=== PATIENT | male | born 1975 | race American Indian/Alaskan Native ===

== ENCOUNTER 2022-05-01 08:15 | Observation (INO) | payer BC ==
[2022-04-26 14:59] LABS: Hematocrit 50.6 % (35.5-45.6); Hemoglobin 17.3 gm/dl (11.8-15.2); Mean Corpuscular HGB Conc 34 % (32-34); Mean Corpuscular Volume 88 fl (84-94); Platelet Count 243 K/mm3 (140-440); Red Blood Count 5.77 M/mm3 (3.65-5.03); Red Cell Distribution Width 16.2 % (13.2-15.2)
[2022-04-26 15:15] LABS: BUN/Creatinine Ratio 14; Blood Urea Nitrogen 15 mg/dL (9-20); Calcium 8.8 mg/dL (8.4-10.2); Hemolysis Index 8
[2022-05-01] MEDS ORDERED: LACTATED RINGERS 1,000 ML ONE (08:29)
[2022-05-01] MEDS: LACTATED RINGERS 1,000 ML IV SCH (08:45)
[2022-05-01] MEDS ORDERED: HYDROmorphone 0.5 MG/0.5 ML INJ IV PRN ×2 (08:51→09:00)
[2022-05-01] MEDS ORDERED: fentaNYL 100 MCG/2 ML INJ IV NR (08:51)
--- NOTE | 2022-05-01 08:52 | Anesthesia Day of Surgery ---
Anesthesia Day of Surgery - Day of Surgery Patient Examined: Yes Patient H&P Reviewed: Yes Patient is NPO: Yes
--- NOTE | 2022-05-01 08:53 | Anesthesia Consultation ---
Anesthesia Consult and Med Hx Date of service: 05/01/22 - Airway Anesthetic Teeth Evaluation: Good ROM Head & Neck: Adequate Mental/Hyoid Distance: Adequate Mallampati Class: Class II Intubation Access Assessment: Probably Good - Pre-Operative Health Status ASA Pre-Surgery Classification: ASA3 Proposed Anesthetic Plan: General Nerve Block: IS - Pulmonary Hx Smoking: No Hx Respiratory Symptoms: No (+2FS) Hx Sleep Apnea: Yes - Cardiovascular System Hx Hypertension: Yes - Central Nervous System Hx Psychiatric Problems: No - Gastrointestinal Hx Gastroesophageal Reflux Disease: No - Hematic Hx Anemia: No (17.3/50.6) Hx Sickle Cell Disease: No - Other Systems Hx Alcohol Use: Yes (Occas) Hx Cancer: No Hx Obesity: Yes
[2022-05-01] MEDS ORDERED: dexAMETHasone 4 MG/ML VIAL ONE (08:55)
[2022-05-01] MEDS ORDERED: BUPIVACAINE-EPINEPHRINE/PF 0.5%-1:200,000 (30 ML) VIAL INFILTRATI ONE ×2 (08:55→10:04)
[2022-05-01] MEDS ORDERED: ONDANSETRON 4 MG/2 ML INJ IV PRN ×2 (09:00→10:00)
[2022-05-01] MEDS: MIDAZOLAM 2 MG/2 ML INJ IV NR ×2 (09:13→09:57)
[2022-05-01] MEDS ORDERED: LIDOCAINE (1%) 10 MG/1 ML VIAL 20 ML MDV ONE (09:28)
[2022-05-01] MEDS ORDERED: ONDANSETRON 4 MG/2 ML INJ ONE (09:43)
[2022-05-01] MEDS ORDERED: SUCCINYLCHOLINE CHLORIDE 200 MG/10 ML INJ MDV ONE (09:43)
[2022-05-01] MEDS ORDERED: dexAMETHasone 20 MG/5 ML VIAL ONE (09:43)
[2022-05-01] MEDS ORDERED: LIDOCAINE MPF (2%) 20 MG/1 ML VIAL 5 ML ONE (09:43)
[2022-05-01] MEDS ORDERED: ROCURONIUM 50 MG/5 ML INJ IV ONE (09:43)
[2022-05-01] MEDS ORDERED: propofoL 200 MG/20 ML VIAL IV ONE (09:43)
[2022-05-01] MEDS ORDERED: ceFAZolin/Water 2 GM/20 ML 2 GM/20 ML SYRINGE IV ONE (09:53)
[2022-05-01] MEDS ORDERED: ACETAMINOPHEN 325 MG TAB PO PRN ×2 (10:00)
[2022-05-01] MEDS ORDERED: AMLODIPINE BESYLATE PO SCH (10:00)
[2022-05-01] MEDS ORDERED: KETOROLAC 30 MG/1 ML INJ IV PRN (10:00)
[2022-05-01] MEDS ORDERED: [UNRECOGNIZED DRUG - OTHER] PO SCH (10:00)
[2022-05-01] MEDS ORDERED: oxyCODONE /ACETAMINOPHEN 5-325MG TAB PO PRN ×3 (10:00)
[2022-05-01] MEDS ORDERED: BENAZEPRIL PO SCH (10:00)
[2022-05-01] MEDS ORDERED: POLYMYXIN B SULFATE 500,000 UNIT VIAL IV ONE (10:04)
[2022-05-01] MEDS ORDERED: SODIUM CHLORIDE 0.9% 250ML 0 ML ONE (10:04)
[2022-05-01] MEDS ORDERED: NEOMY 40 MG/POLYMYXIN B 200,000 UNITS/ML (GU) AMPULE IR ONE ×2 (10:05→11:35)
[2022-05-01] MEDS ORDERED: MORPHINE 4 MG/1 ML INJ IV PRN ×2 (11:00)
[2022-05-01] MEDS ORDERED: SODIUM CHLORIDE 0.9% IRRIG SOLN 3000 ML IR ONE (11:30)
[2022-05-01] MEDS ORDERED: SODIUM CHLORIDE 0.9% IRR 1,500 ML BOTTLE IR ONE (12:00)
[2022-05-01] MEDS ORDERED: ceFAZolin/STERILE WATER 2 GM/20 ML SYRINGE IV NR (13:00)
[2022-05-01] MEDS ORDERED: SUGAMMADEX SODIUM 200 MG/2 ML VIAL IV ONE (13:03)
[2022-05-01] MEDS ORDERED: KETOROLAC TROMETHAMINE 0.5% OS PRN (15:29)
[2022-05-01] MEDS: KETOROLAC TROMETHAMINE 0.5% OS SCH ×2 (15:51→20:50)
--- NOTE | 2022-05-01 15:59 | Post Anesthesia Evaluation ---
- Post Anesthesia Evaluation Patient Participated: Yes Airway Patent: Yes Stable Respiratory Function: Yes Nausea/Vomiting: No Temp > 96.8F: Yes Pain Manageable: Yes Adequeate Hydration: Yes Anesthesia Complications: Yes (left corneal abrasion-toradol gtts given) Block Receding Appropriately: Yes Patient on Ventilator: No Other Comments: Spoke w pt's to f/u w PCP re: ECG
--- NOTE | 2022-05-01 16:02 | XRay Report ---
Right shoulder one view INDICATION: Postop IMPRESSION: Postoperative changes with right humeral head component. Alignment appears normal. Signer Name: Ricki Valverde MD Signed: 05/01/2022 3:58 PM Workstation Name: [id number]
--- NOTE | 2022-05-01 17:59 | Operative Report ---
DATE OF SURGERY: 05/01/2022 PREOPERATIVE DIAGNOSIS: Right shoulder arthritis. POSTOPERATIVE DIAGNOSIS: Right shoulder arthritis. PROCEDURE PERFORMED: Right total shoulder arthroplasty. SURGEON: Hernan Ybarra II, MD TEST DESK SUPERVISOR: Jonny Shaw. ANESTHESIA: General with interscalene block. COMPLICATIONS: None. DRAINS: Small Hemovac. ESTIMATED BLOOD LOSS: 200 mL COMPLICATIONS: None. TOURNIQUET TIME: Not applicable. IMPLANTS: Tornier Simpliciti shoulder system, size 3 nucleus with a 52 x 19 mm humeral head and a size M35 Cortiloc pegged glenoid with cement. INDICATIONS: The patient is a 46-year-old male who has been having refractory pain in the right shoulder. Evaluation workup suggestive of right shoulder arthritis. Risks, benefits and limitations of surgery were discussed with the patient including bleeding, infection, injury to nerves, blood vessel, need for operation. The patient understood the risks and consented to undergo surgery. TECHNIQUE: In the preoperative holding area, site was marked with surgical gissel pen. Extremity was prepped and draped in sterile fashion in a beach chair position. Standard deltopectoral approach was performed. Dissection was carried down to the underlying soft tissue. The cephalic vein was identified. It was suture ligated after being perforated during the case, the deltoid was retracted laterally, pec medially. The upper border of the pec major was identified and released the upper 1 centimeter. Biceps tendon was identified, tenotomy was performed. The conjoined tendon was reflected medially. The arm was placed in external rotation to reveal the underlying circumflex vessels. These vessels were suture ligated and then a tenotomy through the subscapularis was performed using electrocautery. The shoulder was fully externally rotated and a capsular release was performed to approximately 7 o'clock position on the humeral head. The humeral head osteotomy was made in line with the anatomic neck followed by placement of the centering guide pin for the Simpliciti. The humeral head was coplaned and then a humeral head protector was placed. It was felt as though a size 3 nucleus would be appropriate. Attention was then turned to the glenoid. The subscapularis was released in the middle and inferior glenohumeral ligament to allow for full excursion of subscapularis. Retractors were placed superiorly, posteriorly and anteriorly to reveal the glenoid. The biceps tendon and labrum were resected. The size that appeared to be appropriate was a medium-sized glenoid. A centering pin was placed and then the glenoid was reamed down to a bleeding bed with a preference for the anterior glenoid to be taken down. Multiple drill holes were placed into the glenoid for cement fixation. Trial was inserted and was noted to have good coverage of the glenoid. Next, cement was mixed and the implant was inserted, a size M35 Cortiloc pegged glenoid. The peripheral three holes had cement placed. The implant was inserted into place and the cement was allowed to harden. Attention was then turned to the humeral head where a humeral head trial was placed, a size 52 x 19. It was felt to have good excursion posteriorly and the patient was noted to have good range of motion. The humeral head was then impacted into position and the shoulder was reduced. Again, there was noted to be good excursion, full range of motion in the shoulder. The subscapularis was repaired using #5 Ethibond sutures through drill holes. The wound was irrigated and then the deltopectoral fascia was closed with #2 Ethibond, subcutaneous tissue closed with 2-0 Vicryl, skin closed with dawit. A small Hemovac drain was placed. A sterile dressing was applied. The patient was awakened and taken to recovery room in stable condition. He was placed into a shoulder immobilizer. POSTOPERATIVE PLAN: The patient will be in a sling for 6 weeks. No lifting or utilizing arm other than pendulum exercises. We will see the patient back for a followup visit in 2 weeks' time for suture removal. TID: [id number] RECEIPT: [id number] TY/AMA/GLADYS
[2022-05-01] MEDS ORDERED: ceFAZolin/NS 1 GM/50 ML 1 GM/50 ML BAG IV SCH (18:00)
[2022-05-01] MEDS: MORPHINE 2 MG/1 ML INJ IV PRN (21:16)
[2022-05-01] MEDS: ceFAZolin/NS 1 GM/50 ML 1 GM/50 ML BAG IV SCH (21:17)
[2022-05-01] MEDS: KETOROLAC 30 MG/1 ML INJ IV PRN (23:57)
[2022-05-02 00:53] VITALS: BP 141/83
[2022-05-02] MEDS ORDERED: ZOLPIDEM 5 MG TAB PO ONE (00:59)
[2022-05-02] MEDS: KETOROLAC TROMETHAMINE 0.5% OS SCH ×2 (01:55→06:19)
[2022-05-02] MEDS: MORPHINE 2 MG/1 ML INJ IV PRN (03:29)
[2022-05-02] MEDS: LACTATED RINGERS 1,000 ML IV SCH (03:31)
[2022-05-02] MEDS: ceFAZolin/NS 1 GM/50 ML 1 GM/50 ML BAG IV SCH (05:52)
[2022-05-02] MEDS: KETOROLAC 30 MG/1 ML INJ IV PRN (07:06)
[2022-05-02 07:13] LABS: Hematocrit 41.2 % (35.5-45.6); Hemoglobin 13.7 gm/dl (11.8-15.2)
--- NOTE | 2022-05-02 07:28 | Progress Note ---
Assessment and Plan Postop day 1 status post right total shoulder arthroplasty Patient will be discharged home today Prescriptions left on chart for pain medication Patient will follow-up with us in the office in 2 weeks time Drain was removed this morning - Patient Problems (1) Arthritis of shoulder region, right Current Visit: Yes Status: Acute Plan to address problem: Right total shoulder arthroplasty Subjective Date of service: 05/02/22 Interval history: Patient reports his pain is manageable and feels of the block is starting to wear off he reports some irritation in his left eye Objective Vital signs: Vital Signs - 12hr 05/01/22 05/01/22 20:58 22:23 Pulse Rate 110 H Respiratory 20 Rate Blood Pressure 141/83 O2 Sat by Pulse 97 96 Oximetry Range of motion: Smooth range of motion with no crepitus - Diagnostic Results Shoulder x-ray: image reviewed (Implant appears to be in good position) - Labs CBC & BMP: 05/02/22 06:13 04/26/22 06:00
--- NOTE | 2022-05-02 07:45 | Discharge Summary ---
Short Stay Discharge Plan Activity: no restrictions (Keep arm in sling) Weight Bearing Status: Weight Bear as Tolerated Diet: regular Wound: change dressing (Tomorrow) Follow up with: PRIMARY CAREMD [Primary Care Provider] - 7 Days VINAEY SORIANO II, MD [Staff Physician] - 14 Days
[2022-05-02] MEDS ORDERED: oxyCODONE /ACETAMINOPHEN 5-325MG TAB PO PRN (09:47)
[2022-05-02] MEDS ORDERED: LISINOPRIL 20 MG TAB PO SCH (11:00)
[2022-05-02] MEDS ORDERED: amLODIPine 10 MG TAB PO SCH (11:00)
--- NOTE | 2022-05-02 14:18 | Post Anesthesia Evaluation ---
- Post Anesthesia Evaluation Patient Participated: Yes Airway Patent: Yes Stable Respiratory Function: Yes Nausea/Vomiting: No Temp > 96.8F: Yes Pain Manageable: Yes Adequeate Hydration: Yes Anesthesia Complications: No Block Receding Appropriately: Yes Patient on Ventilator: No Other Comments: Patient was discharged home earlier. The nurse reported that the patient did not have any pain in his operative shoulder or his eye. Will be followed for possible cornial abrasion
--- NOTE | 2022-05-03 10:54 | Electrocardiograph Report ---
[facility] Test Date: 2022-05-01 Test Time: 15:32:18 Pat Name: JIN GAMBOA Department: Room: A368 1 Gender: M [employer] Ha[employer] Operator: JESSICA : 1975 Requested By: DIANA CALDERA Order Number: [id number] Reading MD: Buzz Navarrete Measurements Intervals Lena Rate: 93 P: 55 NM: 167 QRS: 67 QRSD: 95 T: -75 QT: 359 QTc: 447 Interpretive Statements Sinus rhythm non specific T wave changes noted. No previous ECG available for comparison Electronically Signed On 05-03-2022 10:54:36 EDT by Buzz Navarrete
--- NOTE | 2022-05-05 17:39 | Event Note ---
Date: 05/05/22 (Left Eye) In PACU, patient had a probable left corneal abrasion and I prescribed ketorolac gtts and have been following up with pt. [phone] [id number] Patient some better and still having pain and feels like something in his eye. I called in ketorolac gtts to [facility] in [place] for him 191 Patient some better and still having pain and feels like something in his eye. I advised him to continue ketorolac gtts 192 Pain resolved and still feels like something in his eye. I offered to make an ophth appointment and he wanted it. [phone] He's feeling the same from yesterday. We made an opth appointment with Dr. Lui for next week.
== END 2022-05-02 11:25 | disposition home or self-care (01) ==
LOC: OR 08:15 → 3A 10:13
PROVIDERS: ADMIT Orthopaedic Surgery Sports Medicine; ATTEND Orthopaedic Surgery Sports Medicine
DX: M19.011 Primary osteoarthritis, right shoulder (principal); Z20.822 Contact with and (suspected) exposure to COVID-19; I10 Essential (primary) hypertension; E11.9 Type 2 diabetes mellitus without complications; Z79.899 Other long term (current) drug therapy; Z98.890 Other specified postprocedural states
CPT/HCPCS: 23472; 36415; 73020; 80048; 85014; 85018; 85027; 88304; 88311; 93005; 94760; 96365; 96366; 96375; 96376; C1713; C1776; G0378; G0379; J0330; J0690; J1100; J1885; J2250; J2270; J2405; J2704; J3010; J3490; J7120; U0003; J3480; J7050